=== PATIENT | female | born 1970 | race Caucasian/White ===

== ENCOUNTER 2020-08-07 11:34 | Observation (INO) | payer MEDICAID, OTHER ==
[~2020-08-07] VITALS: Ht 162.6 cm; Wt 90.9 kg
[2020-08-07 11:59] LABS: BASO % 0.3 % (0.0-2.0); EOS # 0.1 (0.0-0.7); EOS % 0.6 % (0-4.0); GRAN # 8.8 (1.4-6.5); GRAN % 88.5 % (42.2-75.2); HEMATOCRIT 48.1 % (37.0-47.0); HEMOGLOBIN 15.7 g/dl (12.5-16.0); LYMPH # 0.7 (1.2-3.4); LYMPH % 6.8 % (20.0-51.0); MEAN CELL VOLUME 89 fl (80.0-100.0); MEAN CORPUSCULAR HEMOGLOBIN 29 pg (27.0-31.0); MEAN CORPUSCULAR HGB CONC 33 g/dl (33.0-37.0); MEAN PLATELET VOLUME 10.9 fl (7.4-10.4); MONO # 0.4 (0.1-0.6); MONO % 3.6 % (1.7-9.3); PLATELET COUNT 254 K/mm3 (130-400); REDCELL DISTRIBUTION WIDTH-CV 12.7 % (11.5-14.5)
[2020-08-07 13:07] LABS: ALANINE AMINOTRANSFERASE 24 U/L (4-34); ALBUMIN 4.1 gm/dL (3.5-5.0); ALKALINE PHOSPHATASE 93 U/L (50-136); ANION GAP 8 mmol/L (7-16); AST,SGOT 28 U/L (15-37); BILIRUBIN,TOTAL 0.5 mg/dL (0.0-1.0); BLOOD UREA NITROGEN 12 mg/dL (7-17); CALCIUM 8.6 mg/dL (8.4-10.2); CARBON DIOXIDE 28 mmol/L (22-30); CHLORIDE 106 mmol/L (98-107); CREATININE, serum 0.59 (0.52-1.25); GLUCOSE 124 mg/dL (74-106); POTASSIUM 4.2 mmol/L (3.4-5.0); SODIUM 142 mmol/L (137-145); TOTAL PROTEIN 7.6 gm/dL (6.4-8.2)
[2020-08-07 13:18] LABS: TROPONIN-I < 0.012 ng/mL (0.000-0.035)
[2020-08-07] MEDS ORDERED: AMITRIPTYLINE H25 M1 PO (18:00)
--- NOTE | 2020-08-07 18:28 | NUR ---
Pt arrived to medical unit room 309 at 1800 by JEAN. Oriented pt to room, admission assessment completed and med rec updated. A&Ox4. Heart RRR. Lungs CTA. Nauseous at this time, zofran given. Also reports migraine, tylenol administered per orders. Contacted Marie IGNACIO for diet order, order clear liquids and advance diet as tolerated. Call light in reach. Continuing to monitor.
[2020-08-07 18:54] VITALS: BP 103/47; PULSE 126; TEMP 100.4
--- NOTE | 2020-08-07 19:40 | NUR ---
Awake, alert, oriented x 4, daughter at bedside, telemetry in use, denies chest pain, updated on plan of care.
[2020-08-07 19:42] VITALS: BP 103/47; PULSE 126; TEMP 100.4
[2020-08-07 23:26] VITALS: BP 117/52; PULSE 101; TEMP 98.4
[2020-08-08 03:59] VITALS: BP 90/46; PULSE 97; TEMP 98.9
--- NOTE | 2020-08-08 06:21 | NUR ---
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
[2020-08-08 08:00] VITALS: BP 109/66; PULSE 94; TEMP 97.8
[2020-08-08] MEDS ORDERED: ZOFRAN ODT4 MG PO (08:59)
--- NOTE | 2020-08-08 10:30 | NUR ---
I agree w/student nurse's assessment. Left AC IV removed by student nurse. Discussed discharge teaching w/pt and all questions answered. Pt escorted out by medical ammunition assembly i laborer, accompanied by daughter, all belongings in possession.
--- NOTE | 2020-08-08 10:51 | NUR ---
[facility] care supervised by this instructor, agree with documentation.
--- NOTE | 2020-08-08 11:22 | NUR ---
SW met with patient to conduct intake evaluation. Patient is from [place] but is relocating to her son's house in [place], [place] with daughter Yany. Patient reported that she got food poisoning from her take out while staying at a hotel. Patient does not have a DPOA and was not interested in paperwork until she gets resettled. Patient will see a clinician in [place] when settled in. She is having her scripts sent to [facility] in [facility]. Patient does not currently require assistance with ADL and has no DME. Patient would like assistance with paying for this stay. I call was placed to Camila Church for assistance. Patient has discharged to [place] today 08/08 with daughter. There are no further needs at this time. Son Pako (p# [phone]).
== END 2020-08-08 10:30 | disposition home or self-care (01) ==
LOC: COL.ER 11:34 → MEDICAL 16:08
PROVIDERS: Emergency Medicine; ADMIT Family Medicine
DX: K52.9 Noninfective gastroenteritis and colitis, unspecified (principal); E86.0 Dehydration; R00.0 Tachycardia, unspecified; C15.9 Malignant neoplasm of esophagus, unspecified; G47.00 Insomnia, unspecified; G43.909 Migraine, unspecified, not intractable, without status migrainosus; E78.5 Hyperlipidemia, unspecified; Z20.822 Contact with and (suspected) exposure to COVID-19; Z79.899 Other long term (current) drug therapy; Z90.710 Acquired absence of both cervix and uterus; Z90.49 Acquired absence of other specified parts of digestive tract; Z82.49 Family history of ischemic heart disease and other diseases of the circulatory system
CPT/HCPCS: G0378; J2405; J7030; Q9967